=== PATIENT | female | born 1945 | race Caucasian/White ===

== ENCOUNTER → 2019-08-09 12:24 | Outpatient (CLI) | payer MEDICARE, OTHER, SELFPAY ==
[2018-12-14 13:09] VITALS: BMI 35.1
[2019-07-26 13:49] VITALS: BMI 35.1
--- NOTE | 2019-08-09 12:26 | STEWCON_ITS ---
Reason For Study: CAD/ASHD Stress Results Protocol: Srinivasa Protocol WITH DEFINITY Maximum Predicted HR: 148 bpm Target HR: 126 bpm % Maximum Predicted HR: 105 % DurationHeart Rate Stage (mm:ss) (bpm) BP Comment BASELINE 82 130/801 CC DEFINITY STAGE 1 3:00 151 142/82 STAGE 2 3:00 155 152/702 CC DEFINITY RECOVERY 100 132/70 Stress Duration: 6:00 mm:ss Maximum Stress HR: 155 bpm Baseline Echocardiogram Findings The estimated ejection fraction is 65 %. Stress Echo Wall motion Data Resting WM Intermediate WM Stress WM Resting Wall Motion Wall Motion Stress No regional wall motion No regional wall motion abnormalities noted. abnormalities noted. EKG Data The baseline ECG displays normal sinus rhythm. The patient exercised according to the regular Srinivasa protocol for a total duration of 6:00. The maximum heart rate attained was 164 beats per minute. This was 110% of maximum predicted heart rate. The patient exercised into stage 3 of the Srinivasa protocol. During stress, there were no ST or T wave changes noted to suggest ischemia. No clinical angina was noted. Interpretation Summary The estimated ejection fraction is 65 %. Normal, adequate, treadmill echocardiogram. Negative for ischemia by EKG and echocardiographic criteria. No anginal symptoms noted. Rare PVCs noted. Appropriate blood pressure response to exercise. Average exercise capacity for age. Test terminated due to attainment target heart rate and dyspnea. Decreased sensitivity due to poor echo windows requiring Definity agent. Final LVEF is 75%. No complications. The study was technically difficult. Contrast injection was performed. Ordering Physician: Jacek Little Referring Physician: Jacek Little Performed By: Hayley Peerz, TON, RVT
== END ==
PROVIDERS: Family Provider Family Medicine; PCP Family Medicine; Referring Provider Internal Medicine Cardiovascular Disease; Visit Provider Internal Medicine Cardiovascular Disease
DX: I25.10 Atherosclerotic heart disease of native coronary artery without angina pectoris (principal); E78.5 Hyperlipidemia, unspecified; E66.9 Obesity, unspecified
CPT/HCPCS: 93017; 93350; Q9957; A4216; C8928

== ENCOUNTER 2020-11-17 05:20 | Observation (INO) | payer MEDICARE, OTHER, SELFPAY ==
[2020-09-12 08:20] VITALS: BMI 33.7
[2020-11-14 11:08] LABS: Magnesium 2.5 mg/dL (1.6-2.6)
[2020-11-17] VITALS (23 sets, daily range): BP systolic 88–153; BP diastolic 40–85; PULSE 44–94; RESP 16–18; TEMP 35.7–36.7; O2SAT 96–100; BMI 34.0
[2020-11-17] MEDS: Lactated Ringers 1,000 ML 100 ML IV ×4 (06:11→08:31)
[2020-11-17] MEDS: Celecoxib 200 MG Capsule 400 MG PO (06:12)
[2020-11-17] MEDS: Scopolamine 1mg/72hr Patch 1 PATCH TD (06:12)
[2020-11-17] MEDS: Acetaminophen 500 MG Tablet 1000 MG PO ×3 (06:12→22:52)
[2020-11-17] MEDS: Gabapentin 600 MG Tablet PO (06:12)
[2020-11-17 06:30] LABS: Bedside Glucose 111 mg/dL (70-110)
[2020-11-17] MEDS: Cefazolin 2 GM in 0.9% Normal Saline 100 ML IV (07:27)
--- NOTE | 2020-11-17 07:30 | FEM_PTH ---
PATIENT: SHANNA LUNDBERG MARCH LOC: MS3 U#:[id number] AGE/SX: 75/F ROOM: NV318 RE11/17/[address]: Dr. Stepan Conde MD : 1945 BED: 1 DIS: 11/18/2020 SPEC #: [id number] RECD: 11/17/20 08:55 STATUS: MIN REEllen #: [id number] LENNY: 11/17/20 07:[address]: Stepan Conde DEPT: SURGICAL PATHOLOGY RECD BY: Sara Fisher ENTERED: 11/17/20 10:02 SP TYPE: FEM HEAD OTHR DR: Dr. Lalito Norman MD Tissues: Femoral region, NOS Procedures: Decalcification bone/plaque Surgery Specimen Level IV HEADER OPERATION: ERAS, total hip replacement PRE-OP DIAGNOSIS: Left hip primary osteoarthritis TISSUE SUBMITTED: Left hip bone MICROSCOPIC DIAGNOSIS Left hip bone, total hip replacement/resection: Femoral head with degenerative osteoarthritic changes. Fragments of fibroadipose tissue, fibroconnective tissue and reactive synovial tissue with chronic inflammation. TERRELL:madalyn 11/20/2020 MICROSCOPIC DESCRIPTION Slides are reviewed. GROSS DESCRIPTION Received is one container labeled with the patient's name and designated left hip bone. The specimen consists of a dsouza femoral head with portion of femoral neck. The femoral head measures 4.5 x 4 x 3.5 cm and the femoral neck measures 1.5 cm in length. The articular surface displays prominent osteophyte formation, eburnation and bone erosion. Also present in the specimen container are multiple irregular fragments of bone reamings and pink-yellow soft tissue measuring in aggregate 8 x 7 x 2 cm. Pet Ambassador sections are submitted in two cassettes as follows: 1 - soft tissue, 2 - bone after decalcification. / TERRELL:madalyn 11/17/20 TC:5 CPT: 87517, 82331
--- NOTE | 2020-11-17 08:54 | RAD_ITS ---
STUDY: X-RAY - PELVIS AND LEFT HIP REASON FOR EXAM: Female, 75 years old. POST OP TOTAL HIP TECHNIQUE: 2 views of the pelvis and hip. COMPARISON: None. FINDINGS: The patient is status post left total hip replacement. There is good alignment. Postoperative soft tissue changes. RAD/Hip Min 2 Views (Portable) IMPRESSION: Status post left total hip replacement. There is good alignment. Postoperative soft tissue changes. Electronically Signed: Milton Meneses MD at 10:00 EST , Service support ,
--- NOTE | 2020-11-17 08:59 | PRO.PCM_ITS ---
Procedure Report Date of Procedure: 11/17/20 Preoperative diagnosis: Left hip primary osteoarthritis Postoperative diagnosis: Same Operation: Left total hip replacement surgery Surgeon: Dr. Stepan Conde MD Breaker Unit Assembler: Kaye RUSH Second malt specifications control assistant Jake RUSH Anesthesia: Spinal Anesthesiologist Dr Pike Complications: None EBL: 250 Fluids in: 2 L Special medications: IV [Ancef] 2 gm , IV Tranexamic acid Indications for surgery : Patient is a [ 75 ]-year-old with a long-standing history of left severe hip pain that has failed adequate nonoperative treatment. Due to persistent pain and disability, they decided to proceed with hip replacement surgery. Appropriate informed consent was obtained and signed. Appropriate medical workup was performed preoperatively and patient was deemed safe for surgery by the anesthesia department as well. horticultural nursery assistant, physician malt specifications control assistant, was utilized throughout the entire procedure. They were vital in helping with patient positioning, holding of retractors, exposing the tissues adequately for safe completion of the procedure including cutting of the bone, helping operator coating furnace appropriate alignment and sizing of the components, implantation of the components, as well as wound closure, bandage application, and safe patient transfer. Without surgical services asst, physician malt specifications control assistant, surgical time would have been significantly increased, and surgical outcome would have been less optimal. Operative findings: Patient had severe arthritis of the involved hip joint. They underwent a small posterior approach to the hip. We utilized a size 6 press-fit Accolade 2 stem, 127 degree neck angle, a press fit acetabular component size 50 titanium cluster, Trident X3 polyethylene liner with a 36 mm inner diameter, a Biolox ceramic femoral head size [36] with a +0 neck length. This reproduced their anatomy nicely. Clinically good leg lengths were noted. Good hip stability through range of motion with no undue pistoning. Standard wound closure in layers, followed by fransico, followed by Mepilex dressing Details of procedure: Patient was taken to the operating room and transferred to the operating table. Given appropriate anesthetic agent by that department. Patient was then rolled into a lateral decubitus position with the involved painful hip up in the air. Appropriate timeouts had been performed. Hip had been appropriately marked with my initials. Padded anterior and posterior position was utilized. Axillary roll placed. MARIA A hose and SCDs on the nonoperative limb utilized throughout the procedure. Tranexamic acid and IV antibiotics given preoperatively. Operative lower extremity was prepped padded and draped in the usual orthopedic sterile fashion for the procedure. I injected the pain relieving solution in the standard sterile technique of the soft tissues of the hip carefully. Incision was made curving over the tip of the greater trochanter posteriorly. Full thickness skin flaps are raised down on the fascia martin. Fascia martin was opened in length with our incision. Charnley self-retaining hip retractor was carefully placed by the surgeon. Leg was appropriately rotated and held by the malt specifications control assistant. Retractor was used to lift the abductors anteriorly to visualize the piriformis tendon and external rotators. Area was infiltrated with pain relieving cocktail. Piriformis tendon and external rotators released off the greater trochanter with the Bovie. Tagging suture was placed in each of these separately. We then split the tissue superior to the piriformis tendon through capsule and onto the pelvis. Acetabular labrum was also divided. With traction and manipulation arthritic femoral head was dislocated from the acetabulum. Retractors were carefully placed around the femoral neck. Cutting guide was utilized to map out the proposed cut approximately 1 fingerbreadth above the lesser trochanter. This femoral neck cut was carried out with a saw. Arthritic femoral head removed and measured and inspected. Inferior acetabular retractor was placed by the surgeon, held by the malt specifications control assistant. Bone hook utilized to pull the proximal femur anteriorly. Labrum removed from about the acetabulum a long knife. Tissue removed from the depth of the acetabulum with the Bovie. Arthritic acetabulum was noted. We began reaming with the appropriate sized reamer based on the measurement of the femoral head. Reaming was done with 45? of abduction, 20? of anteversion, reproducing there anatomy. Reaming was done incrementally up to the appropriate size creating a smooth cylindrical acetabulum and was done down to healthy bone. Trial acetabular component 1 millimeters smaller than the largest reamer was utilized with the outrigger device. Appropriate abduction and anteversion confirmed as well as size and position of cup. We irrigated with bulb syringe saline. Appropriate acetabular opponent was opened and hammered into position with the outrigger device, with 45? of abduction and 20 degrees of anteversion. We could see through the hole in the cup it was adequately down onto the bone in the pelvis. Good stability was noted. Trial liner with a 10? caro was appropriately positioned. Any anterior and/ or posterior osteophytes removed with an osteotome, rongure. Acetabular retractors removed. A proximal femoral elevator utilized. Held by the malt specifications control assistant. We used a sharp awl entering down inside the bone of the proximal femur. Utilized the brett cutting osteotome in the proximal lateral greater trochanteric region. The fragment removed. Broaching was then done from the smallest broach, upto the appropriate size. Good stability was confirmed. We then trialed the construct with a standard neck length and appropriate sized femoral head on 127? angle neck. We were happy with the construct. Good stability to flexion, rotation by the malt specifications control assistant. At this point trials removed. I now placed the appropriate polyethylene acetabular liner into a clean dry previously placed shell. This was hammered into position. Suction device was used to confirm its stability. We now exposed the proximal femur with appropriate retractors in place, held by the malt specifications control assistant, actual femoral stem was checked, opened, and then hammered into the proximal femur and seated down to a similar position as the trial had. We now again trialed appropriate neck length upon. It was then opened. Now impacted the appropriate sized femoral head, neck construct onto the clean dried trunion. Was noted to be stable. Hip was inspected, and joint was reduced for a final time. Good hip stability and leg lengths noted. This was then irrigated with saline and cleaned. Next the remainder of the pain relieving solution was injected carefully throughout the soft tissues of the hip joint. Closure was carried out with a combination of #1 Vicryl, running #2 strata fix in the fascia martin, followed by mid layer #1 Vicryl with #1 strata fix running. Next running 0 strata fix, followed by skin fransico, Xeroform, Mepilex dressing. We placed MARIA A hose and SCD on the operative leg. Patient awoken from the anesthetic and transferred back to room bed in recovery room in satisfactory condition. Patient will be admitted for pain management, PT, IV antibiotics, medication for DVT prevention. Hopeful discharge to home in 1-3 days Ancef 2 g IV given preoperatively, MARIA A hose and SCDs intraoperatively, Xarelto 10 mg daily for DVT prevention postoperatively This note was generated with Wheel[employer] dictation software. It may contain incorrect words, spelling, and punctuation that were not noted in checking the note before signing.
[2020-11-17] MEDS: Lactated Ringers 1,000 ML 125 ML IV ×4 (10:13→21:21)
[2020-11-17] MEDS: Cefazolin 1 GM/50 ML BAG IV ×2 (15:49→19:09)
[2020-11-17] MEDS: Atorvastatin Calcium 20 MG Tablet PO (21:22)
[2020-11-17] MEDS: Senna/Docusate Sodium 1 Tablet 2 TABLET PO (21:23)
[2020-11-18] MEDS: Cefazolin 1 GM/50 ML BAG IV (01:31)
[2020-11-18 05:15] VITALS: BP 91/49; PULSE 67; RESP 16; TEMP 36.8; O2SAT 96
[2020-11-18] MEDS: Acetaminophen 500 MG Tablet 1000 MG PO ×2 (05:49→14:00)
[2020-11-18] MEDS: Rivaroxaban 10 MG Tablet PO (05:49)
[2020-11-18 06:13] LABS: Hematocrit 33.5 % (37-47); Hemoglobin 11.2 g/dL (12.0-15.0); Mean Corp Hgb Conc 33.4 g/dL (32-36); Mean Corpuscular Hgb 32.3 pg (27.0-32.0); Mean Corpuscular Volume 96.5 fL (81-99); Mean Platelet Vol. 10.7 fl (6.2-12.0); POSITIVE COUNT YES; Platelet Count 87 K/mm3 (150-450); RBC Distribution Width CV 12.6 % (11.6-14.6); RBC Distribution Width SD 44.6 fl (35.1-43.9); Red Blood Count 3.47 M/mm3 (4.2-5.4); White Blood Count 4.1 K/mm3 (4.4-11.0)
[2020-11-18 06:32] LABS: Anion Gap 4 (5-15); BUN 12 mg/dL (7-18); BUN/Creat Ratio 13.9 RATIO (10-20); Calcium,Total 8.5 mg/dL (8.5-10.1); Chloride 114 mmol/L (98-107); Creatinine, Serum 0.87 mg/dL (0.55-1.02); EST Glomerular Filtration Rate 68 mL/min (>60); Est Glom Filt Rate - Afr Amer 82 mL/min (>60); Estimated Creatinine Clearance 49.73 ml/min; Glucose 88 mg/dL (74-106); Potassium 4.4 mmol/L (3.5-5.1); Sodium Level 143 mmol/L (136-145)
--- NOTE | 2020-11-18 07:21 | PCM.PN.ORT ---
Subjective: 75-year-old female underwent a left total hip replacement yesterday. Pain has been well controlled. She currently denies chest pain shortness of breath dizziness or calf pain. She feels she is ready for a discharge to home later today. She would like to be discharged with outpatient physical therapy. Objective: Patient is alert and oriented x3. No acute distress at rest. Breathing easily without respiratory distress. Inspection of left hip reveals a waterproof dressing with a couple small areas of dried drainage without active drainage erythema warmth or signs of infection. Negative Venecia bilaterally without signs of DVT. Pedal pulses present and equal bilaterally. Sensation intact to light touch bilateral lower extremities. Patient is able to actively plantar and dorsiflex bilateral feet against resistance. Postoperative x-rays were discussed and reviewed with Dr. Stepan Conde consistent with press-fit left total hip replacement prostheses in good position without evidence of hardware failure or loosening Laboratory results were reviewed today - Physical Exam Vitals/I&O's: Vital Signs Temp Pulse Resp BP Pulse Ox 98.2 F 67 16 91/49 L 96 11/18/20 05:15 11/18/20 05:15 11/18/20 05:15 11/18/20 05:15 11/18/20 05:15 Oxygen Flow Rate (L/min) 6 Oxygen Delivery Method Room Air Weight: 90 kg Body Mass Index (BMI) 34.0 Intake and Output for Last 24 Hours 11/16/20 11/17/20 11/18/20 23:59 23:59 23:59 Intake Total 7535.5 / 7535.5 1050 / 1050 Output Total 1300 / 1300 Balance 6235.5 / 6235.5 1050 / 1050 Laboratory Results 11/18/20 06:00: WBC 4.1 L, RBC 3.47 L, Hgb 11.2 L, Hct 33.5 L, MCV 96.5, MCH 32.3 H, MCHC 33.4, RDW Std Deviation 44.6 H, RDW Coeff of Erika 12.6, Plt Count 87 L, MPV 10.7 11/18/20 06:00: Sodium 143, Potassium 4.4, Chloride 114 H, Carbon Dioxide 25.0, Anion Gap 4 L, BUN 12, Creatinine 0.87, Estim Creat Clear Calc 49.73, Est GFR (MDRD) Af Amer 82, Est GFR (MDRD) Non-Af 68, BUN/Creatinine Ratio 13.9, Glucose 88, Calcium 8.5 Current Medications Acetaminophen (Acetaminophen 500 Mg Tablet) 1,000 mg PO Q8H [facility] Last Admin: 11/18/20 05:49 Dose: 1,000 mg Documented by: Atorvastatin Calcium (Atorvastatin Calcium 20 Mg Tablet) 20 mg PO QHS [facility] Last Admin: 11/17/20 21:22 Dose: 20 mg Documented by: Enteral Nutritional Formula (Ensure Surgery 237 Ml Liquid) 237 ml PO TIDCM [facility] Last Admin: 11/17/20 16:49 Dose: Not Given Documented by: Lactated Ringer's () 1,000 mls @ 125 mls/hr IV .Q8H [facility] Last Infusion: 11/18/20 05:53 Dose: Infused Documented by: Sodium Chloride () 250 mls @ 15 mls/hr IV .[id number] PRN PRN Reason: Saline Flush Sodium Chloride () 250 mls @ 15 mls/hr IV .[id number] PRN PRN Reason: Additional IVPB Infusion Losartan Potassium (Losartan Potassium 25 Mg Tablet) 25 mg PO DAILY [facility] Last Admin: 11/17/20 16:11 Dose: Not Given Documented by: Morphine Sulfate (Morphine 2 Mg/Ml Syringe) 2 - 4 mg IV Q2H PRN PRN PRN Reason: Pain Score 4-10 Ondansetron HCl (Ondansetron 4 Mg/2 Ml Vial) 4 mg IV Q8H PRN PRN PRN Reason: NAUSEA Oxycodone HCl (Oxycodone 5 Mg Tablet) 5 - 10 mg PO Q4H PRN PRN PRN Reason: Pain Score 4-10 Rivaroxaban (Rivaroxaban 10 Mg Tablet) 10 mg PO DAILY@0600 [facility] Last Admin: 11/18/20 05:49 Dose: 10 mg Documented by: Senna/Docusate Sodium (Senna/Docusate Sodium 1 Tablet) 2 tablet PO BID [facility] Last Admin: 11/17/20 21:23 Dose: 2 tablet Documented by: Sodium Chloride (0.9% Saline Lock 10 Ml Syringe) 10 - 40 ml IV UD PRN PRN Reason: SALINE FLUSH Medical Necessity - Tobacco Use Smoking Status: Never smoker Tobacco Use: Non-smoker Assessment/Plan All Active Problems (Last Reviewed 09/12/20 @ 11:[address] Arias Wolfe MD) Preop cardiovascular exam (Acute) 1. Status post left total hip replacement 2. Continue OxyIR and Tylenol for pain control 3. Begin PT/OT weightbearing as tolerated left lower extremity with a walker hip dislocation precautions 4. DVT prophylaxis bilateral teds SCDs and Xarelto daily for 1 week then transition to aspirin 81 mg twice daily for an additional 3 weeks 5. Drop in hemoglobin/hematocrit with thrombocytopenia likely multifactorial due to blood loss and hemodilution 6. Encourage incentive spirometry 7. Continue discharge planning with case management plan for discharge with outpatient physical therapy 8. Patient is orthopedically stable and okay for discharge to home today if having adequate pain control and doing well with physical therapy
--- NOTE | 2020-11-18 07:27 | DCINST_ITS ---
Discharge Diet: No Restrictions Discharge Activity: May Not Drive - while taking narcotic pain medications., May not drive while taking narcotic pain medications., Use Walker May shower in (days): 2 - only if incision is dry and without drainage. Do NOT soak/submerge in tub/pool/rubalcava/stream/hot tub. Okay to shower over waterproof dressing Ice area for (Minutes): 20 Elevate: Operative Extremity Additional Activity Instructions:: Wear elastic stockings for 2 weeks. DO NOT use alcohol with narcotic pain medication. DO NOT make important decisions while taking narcotic medication. If you have problems with taking your medication (rash, itching, nausea, etc.) call the office at once. Call your doctor if your incision/area has: Continuous Slow Oozing, Sudden Increased Bleeding, Increased Pain/ Swelling, Increased Redness, Foul Smelling Discharge Call your doctor if you observe: Fever of 101 or Higher, Numbness or Tingling, Shortness of breath, Chest pain, Calf discomfort, Uncontrolled pain Remove Dressing in (days):: 5 Cleanse incision/area with: Soap & Water Allergies/Adverse Reactions: Allergies Penicillins Allergy (Verified 11/17/20 05:34) rash Medications to take at Discharge Losartan Potassium [Cozaar] 25 mg PO DAILY 11/03/20 Rosuvastatin Calcium 10 mg PO QDAY 11/03/20 Acetaminophen [Tylenol] 1,000 mg PO Q8H #60 tab 11/18/20 Oxycodone [Oxyir] 5 - 10 mg PO Q4H PRN PRN 7 Days #56 tab 11/18/20 Rivaroxaban [Xarelto] 10 mg PO DAILY@0600 #6 tab 11/18/20 Senna/Docusate Sodium [Senokot-S] 2 tab PO BID #30 tab 11/18/20 The following prescriptions were given: Oxycodone [Oxyir] 5 - 10 mg PO Q4H PRN PRN 7 Days #56 tab PRN Reason: Pain Score 4-10 Prescription Printed Senna/Docusate Sodium [Senokot-S] 2 tab PO BID #30 tab Prescription Printed Acetaminophen [Tylenol] 1,000 mg PO Q8H #60 tab Prescription Printed Rivaroxaban [Xarelto] 10 mg PO DAILY@0600 #6 tab Prescription Printed Primary Care Physician: Lalito Norman MD [Primary Care Provider] - Test Results: Test results from this visit will be discussed in further detail at your follow- up appointment, if applicable.
[2020-11-18] MEDS: Senna/Docusate Sodium 1 Tablet 2 TABLET PO (09:09)
[2020-11-18] MEDS: Losartan Potassium 25 MG Tablet PO (09:09)
[2020-11-18 09:15] VITALS: PULSE 80
[2020-11-18] MEDS: Ensure Surgery 237 ML LIQUID PO ×2 (09:15→12:06)
[2020-11-18 09:16] VITALS: BP 119/57; PULSE 79; RESP 16; TEMP 36.9; O2SAT 100
--- NOTE | 2020-11-18 10:30 | CASEMGMT ---
SANDEE SORIANO Face to Face with patient for initial transition planning/care coordination assessment. SANDEE SORIANO introduced self and role at [facility]. Patient sitting in chair, alert and oriented. Patient willing to participate in assessment and is able to answer all questions appropriately. Care providers, pharmacy, and demographics verified. Patient wishes to discharge home and would like outpatient therapy at [facility]. Patient states he has no further needs or concerns at this time. CM to follow for discharge planning needs that may arise. PCP: [facility] Specialists: Aiden grinding supervisor; Alfredito Conde [facility]erred [facility] Prescription Benefit: yes Living Will/HPOA: yes, [employer] LNOK: Living Arrangements: Patient lives with in a 2 story home with bed and bath on first floor. Patient has 2 steps to enter the home. Patient state she was independent at home. Transportation: DME/HHC: Patient states that she has shower chair, raised toilet, hip kit, walker, andf garb bars at home. patient states she would like outpatient therapy at [facility] in [place]. SANDEE SORIANO scheduled appt with [facility] outpatient therapy for 11/20/20 at 1030. SANDEE SORIANO updated patient Disposition Plan: Patient to discharge home with family support and follow-up plans in place. Pita ESCOBAR, RN, CM
--- NOTE | 2020-11-18 11:58 | PHA.DC.MC ---
Pharmacy Service has performed discharge medication reconciliation and counseling for this patient. The patient was counseled on the following discharge medications and changes in medications for homegoing were reviewed. 1. OXYCODONE 2. SENNA/DOCUSATE 3. ACETAMINOPHEN 4. XARELTO The Reason for Use, instructions for use, and potential side effects were reviewed for all new medications. The patient's questions regarding all of their medications were answered. The patient was able to verbally demonstrate an understanding of their discharge medications. Home Medications Losartan Potassium [Cozaar] 25 mg PO DAILY 11/03/20 Rosuvastatin Calcium 10 mg PO QDAY 11/03/20 Acetaminophen [Tylenol] 1,000 mg PO Q8H #60 tab 11/18/20 Oxycodone [Oxyir] 5 - 10 mg PO Q4H PRN PRN 7 Days #56 tab 11/18/20 Rivaroxaban [Xarelto] 10 mg PO DAILY@0600 #6 tab 11/18/20 Senna/Docusate Sodium [Senokot-S] 2 tab PO BID #30 tab 11/18/20 The patient's discharge medication list was reviewed for discrepancies and discrepancies were resolved.
[2020-11-18 14:59] VITALS: BP 98/42; PULSE 81; RESP 17; TEMP 37.2; O2SAT 99
== END 2020-11-18 15:26 | disposition home or self-care (01) ==
LOC: ACINP 09:49 → MS3 10:33
PROVIDERS: Anesthesiology; Admitting Provider Orthopaedic Surgery; PCP Family Medicine; Referring Provider Orthopaedic Surgery; Visit Provider Orthopaedic Surgery
PROC: 0SRB0JZ Replacement of Left Hip Joint with Synthetic Substitute, Open Approach (ICD-10-PCS; CPT 27130; principal; 2020-11-17 07:05)
DX: M16.12 Unilateral primary osteoarthritis, left hip (principal); Z20.828 Contact with and (suspected) exposure to other viral communicable diseases; E78.00 Pure hypercholesterolemia, unspecified; Z79.899 Other long term (current) drug therapy; Z79.82 Long term (current) use of aspirin; I10 Essential (primary) hypertension; I49.9 Cardiac arrhythmia, unspecified
CPT/HCPCS: 01214; 27130; 36415; 73502; 80048; 82962; 83735; 85027; 87426; 88305; 88307; 88311; 96361; 96365; 96366; 97110; 97116; 97162; 97166; 97530; 97535; 99218; 99251; C9803; J7120; G0378; G0379; G0463